=== PATIENT | male | born 1995 | race Caucasian/White ===

== ENCOUNTER 2017-05-03 10:36 | Emergency (ER) | payer SELFPAY, OTHER | END 2017-05-03 11:15 | disposition home or self-care (01) | LOC: ER 10:36 | DX: H66.92 Otitis media, unspecified, left ear (principal); E03.9 Hypothyroidism, unspecified; M30.3 Mucocutaneous lymph node syndrome [Kawasaki]; I25.3 Aneurysm of heart; Z87.01 Personal history of pneumonia (recurrent); Z88.1 Allergy status to other antibiotic agents | CPT/HCPCS: 99283 ==